=== PATIENT | male | born 1940 | race Caucasian/White ===

== ENCOUNTER → 2017-04-18 | Day surgery (SDC) | payer MEDICARE ==
[~2017-04-18] MED LIST: ACETAMINOPHEN500 M7 PO; BENICAR PO; CLARITIN10 M3; FERRO-TIME325 MG PO; FLONASE ALLERG9.9 ML; IMDUR-ER30 M1; LASIX20 MG PO; LIPITOR20 MG PO; LOSARTAN POTASS50 MG PO; MULTI-DAY VITA1 EACH; NATURAL VIT1000 UNIT; OMEPRAZOLE40 M1 PO; TOPROL XL100 MG PO; ULORIC40 MG; VICODIN 5/500 T1 TAB PO; ZINC50 M1 PO
--- NOTE | ~2017-04-18 | OR ---
Unit #: [id number] #: [id number] Patient: TERRENCE JEAN [id number] [address] [address] [id number] MR#: [id number] NAME: TERRENCE JEAN. ROOM: Date of Procedure: 04/18/2017 Admission Date: 04/18/2017 Surgeon: Chao Zuleta M.D. : 1940 Attending Physician: Chao Zuleta M.D. Primary Care Physician: Amina Beavers M.D. OPERATIVE REPORT PROCEDURE PERFORMED Esophagogastroduodenoscopy with dilation with balloon. INDICATIONS FOR PROCEDURE The patient with significant dysphagia, chronic GERD symptoms. MEDICATIONS Monitored anesthesia. POSTOPERATIVE FINDINGS 1. Esophageal stricture at GE junction dilated with a balloon to 20 mm. 2. Hiatal hernia. 3. Normal stomach, duodenum, and distal duodenum. PLAN Continue PPI therapy. Repeat dilation based on symptoms. Reflux precautions explained. DESCRIPTION OF PROCEDURE The patient was explained of the procedure, risks, and benefits along with risks and benefits of anesthesia. He was brought to the endoscopy room. Propofol anesthesia was given. Bite block was placed. The scope was passed down the mouth into the esophagus, stomach, duodenum, and distal duodenum. Findings as described. Dilation was carried out successfully. Gently, I pulled the scope out of the patient's mouth. He tolerated it well. No major complications were seen. Dictated by... Nasim Sales/melody TD: 04/18/2017 15:25 JOB #: [id number] Unit #: [id number] #: [id number] Patient: TERRENCE JEAN OPERATIVE REPORT Page 1 of 1 X Chao Zuleta MD X PROCEDURE OPERATIVE NOTE
== END | disposition home or self-care (01) ==
LOC: COPS 07:14
DX: K22.2 Esophageal obstruction (principal); K44.9 Diaphragmatic hernia without obstruction or gangrene; I25.2 Old myocardial infarction; K21.9 Gastro-esophageal reflux disease without esophagitis; N18.3 Chronic kidney disease, stage 3 (moderate); Z96.641 Presence of right artificial hip joint; Z96.653 Presence of artificial knee joint, bilateral; Z95.5 Presence of coronary angioplasty implant and graft; Z98.890 Other specified postprocedural states